=== PATIENT | male | born 2000 | race Caucasian/White ===

== ENCOUNTER 2019-09-11 16:31 | Emergency (ER) | payer BC, OTHER ==
[~2019-09-11] VITALS: Ht 175.3 cm; Wt 88.9 kg
[2019-09-11 17:22] VITALS: BP_SYST 167
--- NOTE | 2019-09-11 17:27 | NUR ---
tPatient triaged and placed in waiting room. VSS and patient appears in no acute distress at this time. Awaiting available bed, and MD notified of need for MSE.
--- NOTE | 2019-09-11 18:00 | NUR ---
Patient to ER bed 8 to gown for evaluation. Side rails up. Report given to CARLOS Gregorio.
--- NOTE | 2019-09-11 18:01 | NUR ---
Patient came from home for evaluation of multiple complaints over the past week. Patient is complaining of nausea/diarrhea x1 week; heartburn and left shoulder/chest pain x4, fatigue x4 days, fatigue x3 days, vomiting last night.
--- NOTE | 2019-09-11 18:02 | NUR ---
ER Dr. Torres at bedside examining patient.
[2019-09-11 18:45] VITALS: BP_SYST 169
--- NOTE | 2019-09-11 18:45 | NUR ---
Patient given written and verbal discharge instructions and verbalizes understanding. ER MD discussed with patient the results and treatment provided. Patient in stable condition. ID arm band removed. Rx of ZOFRAN, LOMOTIL, PEPCID given. Patient educated on pain management and to follow up with PMD. Pain Scale 2/10. Opportunity for questions provided and answered. Medication side effect fact sheet provided.
== END 2019-09-11 18:45 | disposition home or self-care (01) ==
LOC: SED 16:31
DX: K52.9 Noninfective gastroenteritis and colitis, unspecified (principal); R07.89 Other chest pain; R12 Heartburn
CPT/HCPCS: 93005; 99283